=== PATIENT | female | born 1950 | race Caucasian/White ===

== ENCOUNTER → 2016-09-14 | Outpatient (CLI) | payer BC ==
[~2016-09-14] MED LIST: ASPI-504 PO; ATOR80TA PO; ESTR0.5T PO; FENO145T2 PO; FLUT16SP NS; NF-FAMCIT PO; PROG100C3 PO
== END ==
LOC: MHUC 11:12
PROVIDERS: ATTEND Physician Assistant
DX: Z53.9 Procedure and treatment not carried out, unspecified reason (principal)